=== PATIENT | female | born 1935 | race Two or more races ===

== ENCOUNTER 2019-03-12 14:25 | Emergency (ER) | payer SELFPAY ==
[~2019-03-12] VITALS: Ht 149.9 cm; Wt 72.7 kg
[2019-03-12] MEDS ORDERED: CHL25 PO (14:48)
[2019-03-12] MEDS ORDERED: NIFE10 PO (14:48)
[2019-03-12 15:20] VITALS: BP 142/65
== END 2019-03-12 16:11 | disposition home or self-care (01) ==
LOC: EMS 14:27
DX: L03.116 Cellulitis of left lower limb (principal); I10 Essential (primary) hypertension; Z79.899 Other long term (current) drug therapy; Z88.0 Allergy status to penicillin